=== PATIENT | female | born 1975 ===

== ENCOUNTER 2024-07-25 06:05 | Day surgery (SDC) | payer OTHER ==
[2024-07-19 10:43] VITALS: BP 156/92
[~2024-07-25] VITALS: Ht 170.2 cm; Wt 108.9 kg
[~2024-07-25 06:05] MED LIST: AMOX1TAB5 PO; CLARITIN10 MG PO; LIPITOR20 MG PO
[2024-07-25] MEDS ORDERED: CEFAZOLIN SODIUM 1,000 MG VIAL IV ONE (10:30)
[2024-07-25] MEDS ORDERED: BUPIVACAINE HCL 30 ML VIAL IJ ONE (10:30)
[2024-07-25] MEDS ORDERED: ISOPROPYL ALCOHOL 30 ML OUNCE TOP ONE (10:30)
[2024-07-25] MEDS ORDERED: MORPHINE SULFATE 4 MG/ML VIAL IV ONE ×2 (11:50→12:50)
[2024-07-25] MEDS ORDERED: MEPERIDINE HCL 25 MG/ML AMPUL IV ONE (12:20)
== END 2024-07-25 14:10 | disposition home or self-care (01) ==
LOC: CIR.AMB 06:05
PROVIDERS: ATTEND Orthopaedic Surgery Hand Surgery
DX: M77.12 Lateral epicondylitis, left elbow (principal); Z91.018 Allergy to other foods